=== PATIENT | female | born 1970 | race Caucasian/White ===

== ENCOUNTER 2023-04-06 09:35 | Outpatient (CLI) | payer SELFPAY ==
[2023-04-06 12:13] LABS: Anion Gap 17 mmol/L (10-20); BUN (Urea Nitrogen) 6 mg/dL (9.8-20.1); Calc. Creatinine Clearance 0 mL/min (70-130); Calcium 9.3 mg/dL (7.8-10.44); Carbon Dioxide 26 mmol/L (22-29); Chloride 103 mmol/L (98-107); Estimated GFR 103; Glucose 178 mg/dL (70-105); Potassium 4.5 mmol/L (3.5-5.1); Sodium 141 mmol/L (136-145)
== END 2023-04-06 09:36 | disposition home or self-care (01) ==
LOC: CSHLAB 09:35
PROVIDERS: ATTEND Surgery
DX: Z01.818 Encounter for other preprocedural examination (principal)
CPT/HCPCS: 80048; 93005; 93010

== ENCOUNTER 2023-04-09 05:52 | Day surgery (SDC) | payer SELFPAY ==
[2023-04-06 10:12] VITALS: BMI 23.5
[2023-04-09] MEDS ORDERED: Lidocaine 1% PF 5 ML VIAL ONE (06:18)
[2023-04-09] MEDS ORDERED: Dexamethasone 20 MG/5 ML VIAL ONE (06:18)
[2023-04-09] MEDS ORDERED: Ondansetron PF 4 MG/2 ML Vial ONE (06:18)
[2023-04-09] MEDS ORDERED: PROPOFOL 20 ML ONE (06:18)
[2023-04-09] MEDS ORDERED: fentaNYL 50 mcg/mL 1 mL Vial ONE (06:19)
[2023-04-09] MEDS ORDERED: Midazolam HCl 2 mg/2 ml Vial ONE (06:19)
[2023-04-09] MEDS ORDERED: Sevoflurane 250 ML INH ANEST BOTTLE ONE (06:23)
[2023-04-09] MEDS ORDERED: EPINEPHrine 1 MG/ML VIAL ONE (06:34)
[2023-04-09] MEDS ORDERED: Bupivacaine PF 0.5% 30 ML VIAL ONE (06:35)
[2023-04-09] MEDS ORDERED: CEFAZOLIN 2 GM VIAL ONE (06:58)
[2023-04-09] MEDS ORDERED: PHENYLEPHRINE-NS 100 MCG/ML 10 ML SYRINGE ONE ×2 (07:15→07:16)
[2023-04-09] MEDS ORDERED: Acetaminophen 325 MG TAB PO PRN (07:38)
[2023-04-09] MEDS ORDERED: HYDROcodone/Acetaminophen 5/325 mg Tablet PO PRN (07:38)
== END 2023-04-09 09:10 | disposition home or self-care (01) ==
LOC: CSHSDC 05:52
PROVIDERS: ATTEND Surgery
PROC: 05HM33Z Insertion of Infusion Device into Right Internal Jugular Vein, Percutaneous Approach (ICD-10-PCS; principal; 2023-04-09)
DX: C56.9 Malignant neoplasm of unspecified ovary (principal); E78.00 Pure hypercholesterolemia, unspecified; E11.9 Type 2 diabetes mellitus without complications; F17.210 Nicotine dependence, cigarettes, uncomplicated; F15.90 Other stimulant use, unspecified, uncomplicated; Z91.048 Other nonmedicinal substance allergy status; Z88.1 Allergy status to other antibiotic agents; Z88.2 Allergy status to sulfonamides; Z88.8 Allergy status to other drugs, medicaments and biological substances; Z79.84 Long term (current) use of oral hypoglycemic drugs; Z79.899 Other long term (current) drug therapy
CPT/HCPCS: 36416; 71045; C1788; J0171; J1100; J1642; J2250; J2405; J2704; J3010; S0020